=== PATIENT | male | born 1950 | race Caucasian/White ===

== ENCOUNTER 2016-04-24 10:01 | Inpatient (IN) | payer MEDICARE ==
[~2016-04-24] VITALS: Ht 188 cm; Wt 56.8 kg
[2016-04-24] VITALS (7 sets, daily range): BP systolic 105–142; BP diastolic 60–75
[~2016-04-24 10:01] MED LIST: ADVAIR 250/5028 PUFF IN; ALBUTEROL-200 PUFFS/ IH; ALBUTEROL2.5 MG/NEB IN; ALBUTEROL2.5 MG/NEB INH; AMOXICILLIN875 MG PO; AUGMENTIN1 TA2 PO; BACTRIM DS 8001 TA1 PO; BOT OP; CIPRO 500MG TA500 MG PO; COUMADIN 5MG TAB5 MG PO; CYCLOBENZAPRINE10 MG PO; DIAZEPAM5 M1 PO; DUONEB 3 MG/3 ML3 ML IH; ENDOCET 325 MG-1 TAB PO; FLEXERIL10 MG PO; GABAPENTIN 600600 MG PO; GABAPENTIN800 MG PO; HYDROCODONE 7.51 TAB PO; KEFLEX 500MG.500 MG PO; LEVAQUIN500 MG PO; MECLIZINE25 MG PO; MEDROL 4MG. DOSE4 MG PO; METRONIDAZOLE500 M1 PO; MORPHINE SULFAT30 M3 PO; MORPHINE SULFAT30 M4 PO; NEVANAC 3 ML3 ML OP; NICOTINE PATCH;14 MG TD; NICOTINE PATCH;21 MG TD; NOMEDS *; OXYCODONE 5MG TA5 MG PO; OXYCODONE HCL15 MG PO; OXYCODONE SR 2020 MG PO; OXYGEN3 IH; PERCOCET 10 MG1 EACH PO; PERCOCET 5/3251 EACH PO; PHENERGAN 12.12.5 M1 PO; PILOCARPINE HCL OP; PRED FORTE OP; PREDNISONE 20MG20 MG PO; PROAIR HFA0.09 MG/AC IH; PROVENTIL0.09 MG/A1 IH; ROXICODONE15 MG PO; SALMETEROL-F28 PUFFS IN; SPIRIVA HA1 PUFF/INH IH; SYMBICORT1 AE1 IH; SYMBICORT1 AER IH; VALIUM 5MG TABLE5 MG PO; VALIUM2 MG PO; VENTOLIN H0.09 MG/AC IH; VIGAMOX 3 ML3 ML OP; ZITHROMAX Z PA250 MG PO; ZITHROMAX Z-PA250 M1 PO
--- NOTE | 2016-04-24 10:25 | Emergency Room Report ---
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 Clinical Suspician of Infection? Mental Status: Sepsis Risk: Have you (or family members/close friends) recently traveled outside the [place]? If Yes, where/when: Have you had exposure to infectious disease within the past month? TB? Other? Specify: Source patient, RN notes reviewed Exam Limitations no limitations Comment pT sent from home due to being less responsive than usual. He has history of COPD and is on home O2 at 2 L and also on chronic pain meds. In the ED he is not verbally communicative but does shake his head yes and no to questions. Pupils are small and he is on 4L nasal O2 and has an O2 Sat of 99% on 4L in the ED. He has no focal deficit but does not answer questions except to shake his head and does not follow verbal instructions. His VS are all normal Cardiac Chest Pain Chest pain indicative of cardiac No ALLERGIES Coded Allergies: aspirin (Severe, Q-[id number]-DDLD/THROAT 03/06/16) ibuprofen (Severe, G-MAEVDV-TZJS/THROAT 03/06/16) Home Medications Active Scripts Prednisone (Prednisone 20MG) 20 MG PO BID #10 TAB Prov: 03/17/16 Reported Medications ALBUTEROL (Albuterol 0.083% Neb) 2.5 MG INH QIDP PRN SOB Albuterol (Albuterol-Hfa Inhaler) 1 PUFF IH Q4HP PRN SOB FLUTICASONE/SALMETEROL (Advair 250-50 Diskus) 1 PUFF IN BID Diazepam 5 MG PO TIDP PRN ANXIETY #90 TAB Gabapentin (Gabapentin 600MG) 300 MG PO TID HYDROCODONE/ACETAMINOPHEN ([place] 5-325 Tablet) 1 TAB PO BID Device (Oxygen Concentrator (Portable)) 1 UNIT IH CONSTANT History Medical History General CAD? No Angina: No VT: No Hypertension? Yes Hyperlipidemia? No CHF? No DVT? Yes PE? No COPD? Yes Asthma? Yes Anemia? No GERD? No Gastric ulcers? Yes GI Bleed? No Hernia? Yes Thyroid Problems? No Hypothyroidism? No CVA? No Seizures? No Diabetes? No Insulin Dependent: No Insulin Pump: No Home FSBS? No Renal Insuffiency? No End Stage Renal Disease? No UTI? No Stones? No BPH? Yes GB Disease: No Nephritic Syndrome? No Asplenia? No Hepatitis? Yes Sickle Cell Disease? No Arthritis? No Migraines? No Cataracts? Yes Glaucoma? No MRSA? No HIV? No TB? No Anxiety? Yes Depression? Yes Cancer? No More? No Immunization Hx DT/Tetanus Unknown Flu 2016-17FSN Pneumonia Received In Past Surgical Hx Previous Surgery?Y BACK SURGERY X 2 Cataract(s) HERNIA REPAIR Family History Family Hx Diabetes Yes CAD Yes Hypertension Yes Hyperlipidemia Yes Cancer Yes TB No Social History Smoking Hx Packs/day 1 1/2 - 2 Packs Alcohol Alcohol: No Review of Systems All Other Systems Reviewed and Negative Constitutional see HPI Eyes see HPI Respiratory see HPI Cardiovascular see HPI Psychiatric/Neurological see HPI Physical Exam Vital Signs Vital Signs Date Time Temp Pulse Resp B/P Pulse O2 O2 Flow FiO2 Ox Delivery Rate 04/24 1258 103 20 124/63 100 5 04/24 1211 100 20 148/80 100 2 04/24 1120 100 20 135/72 94 2 04/24 1004 98.7 106 99 142/74 99 General Appearance no apparent distress, fatigued, Shakes head to questions but does not respond to verbal stimulation in any other way Eye Exam - bilateral eye other (both pupils small but reactive) Ear, Nose, Throat normal ENT inspection Respiratory Status No: respiratory distress. Lung Sounds bilateral: rhonchi. Cardiovascular normal exam, regular rate/rhythm, no peripheral edema Neurologic no focal deficit but not yet verbally responsive Medical Decision Making LABS/Meds/Orders Pt receiving controlled substance in ED? No Results/Orders Laboratory Tests 04/24/16 1237: ABG pH 7.27 L, ABG pCO2 (Temp Corrct 101.0 H, ABG pO2 (Temp Correct 211.0 H, ABG HCO3 46.0 H, ABG Total CO2 49.0 H, ABG O2 Sat (Calculated) 99, ABG Base Excess 19.0 H, Kevin Test ACCEPTABLE, Blood Gas Comments RIGHT RADIAL 04/24/16 1200: Opiates Screen POSITIVE H, Urine Methadone Screen NEGATIVE, Barbiturates NEGATIVE, Phencyclidine Screen NEGATIVE, Amphetamines Screen NEGATIVE, Benzodiazepines Screen NEGATIVE, Cocaine Screen NEGATIVE, Marijuana (THC) Screen NEGATIVE, Urine Color YELLOW, Urine Appearance CLEAR, Urine pH 6.0, Ur Specific [place] >= 1.030, Urine Protein NEGATIVE, Urine Ketones 3+ H, Urine Blood NEGATIVE, Urine Nitrate NEGATIVE, Urine Bilirubin 1+ H, Urine Urobilinogen 1.0, Ur Leukocyte Esterase NEGATIVE, Urine RBC NONE, Urine WBC 10-20, Ur Squamous Epith Cells NONE, Urine Bacteria 2+, Hyaline Casts 3-5, Urine Glucose NEGATIVE 04/24/16 1100: Sodium 145, Potassium 4.4, Chloride 101, Carbon Dioxide 42 *H, BUN 18, Creatinine 0.7 L, Estimated Creat Clear 69, Estimated GFR (MDRD) 114, Glucose 86, Calcium 9.0, Total Bilirubin 1.0, AST 6 L, ALT 15, Alkaline Phosphatase 61, Total Protein 6.8, Albumin 3.4, Globulin 3.4 H, Albumin/Globulin Ratio 1.0 L 04/24/16 1030: Lactic Acid 0.9 04/24/16 1015: WBC 7.6, RBC 3.95 L, Hgb 12.3 L, Hct 37.8 L, MCV 95.5, RDW 13.8, Plt Count 171, MPV 13.9 H, Gran % 75.1, Gran # 5.7, Lymphocytes % 19.6, Monocytes % 4.3, Eosinophils % 0.7, Basophils % 0.4, Lymphocytes # 1.5, Monocytes # 0.3, Eosinophils # 0.1, Basophils # 0.0, PUBS MCHC 32.6, MCH 31.1 Current Medication Orders Sig/Chi Start time Last Medication Dose Route Stop Time Status Admin Albuterol/Ipratropium 3 ML ONCE ONE 04/24 1300 DC INH 04/24 1301 Methylprednisolone 125 MG ONCE ONE 04/24 1300 DC Sodium Succinate IV 04/24 1301 Naloxone HCl 2 MG ONCE ONE 04/24 1030 DC 04/24 IV 04/24 1031 1044 Sodium Chloride 10 ML PRN PRN 04/24 1030 AC 04/24 IV 04/25 1025 1045 Sodium Chloride 1,000 ML .Q1H1M 04/24 1030 DC 04/24 IV 04/24 1130 1044 Sodium Chloride 10 ML PRN PRN 04/24 1030 AC IV 04/25 1026 Sodium Chloride 1,000 ML .Q4H 04/24 1030 DC IV 04/24 1429 Sodium Chloride 10 ML PRN PRN 04/24 1030 DC IV 04/25 1026 Sodium Chloride 1,000 ML .Q1H1M 04/24 1030 DC IV 04/24 1130 Sodium Chloride 10 ML PRN PRN 04/24 1030 DC IV 04/25 1026 Sodium Chloride 1,000 ML .STK-MED ONE 04/24 1022 DC IV Naloxone HCl 0 .STK-MED ONE 04/24 1016 DC .ROUTE Orders Procedure Date/time Status DIET-NOTHING BY MOUTH 04/24 L Active RT REQUEST DUONEB 04/24 1300 Active Decision to admit 04/24 1300 Active CULTURE, URINE 04/24 1200 Active CULTURE, BLOOD 04/24 1030 Active ARTERIAL BLOOD GAS REQUEST 04/[address] HEAD REQ 04/24 1028 Complete IV SALINE LOCK 04/24 1028 Active CULTURE, BLOOD 04/24 1028 Active URINALYSIS/COMPLETE 04/24 1028 Complete LACTIC ACID 04/24 1028 Complete DRUG ABUSE SCREEN (10) 04/24 1028 Complete CBC WITH AUTO DIFF 04/24 1028 Complete CHEM 12 PROFILE 04/24 1028 Complete CM/EKG CM/EKG EKG rate (112), NSR (sinus tach), old anterior infarct pattern XRAY/CT/US XRAY/CT/US XRAY chest XR interpretation by discussed w/radiologist Xray Results COPD with hyperinflation, no acute infiltrates CT head CT interpretation by discussed w/radiologist Time results known: 1144 CT Results No acute change from 03/07/2016. Chronic Ischemic changes with Bilat. lacunar infarctions Departure Departure Time of Disposition 1300 Disposition Still a Patient Clinical Impression Primary Impression: COPD with exacerbation Secondary Impressions: Acute and chronic respiratory failure with hypercapnia Condition STABLE Referrals Sherrell LOGAN,Diana Gray Patient Instructions Chronic Obstructive Pulmonary Disease Additional Instructions Admitted to Dr. Wynne with COPD Exacerbation with hypercapnia Discharge Counseling Counseled pt/family regarding diagnosis, test results, follow up needs ED Critical Care Critical Care No If Critical Care minutes are documented, the time involved in the performance of seperately reportable procedures was not counted toward critical care time documented. I directly delivered medical care to this critically ill and/or injured patient. Timely evaluation and treatment was necessary to address the significant organ system(s) dysfunction present in this patient. at 1300
[2016-04-24 10:52] LABS: HEMOGLOBIN 12.3 g/dL (14.1-18.0); LYMPH # 1.5 K/mm3 (0.7-4.5); LYMPH % 19.6 % (10-50)
[2016-04-24] MEDS ORDERED: NORCO 325 MG-51 TAB PO (11:07)
--- NOTE | 2016-04-24 11:25 | RADIOLOGY REPORT PS360 ---
CT HEAD W/O CONTRAST HISTORY: Altered mental status, altered level consciousness, SLOW TO RESPOND ORDERING PHYSICIAN: MUKUND VIZCAINO APRN PATIENT AGE: 65 years COMPARISON: 03/07/2016 TECHNIQUE: Axial images obtained without contrast. Brain and bone windows reviewed. FINDINGS: No midline shift, mass effect, intracranial hemorrhage, hydrocephalus, or extra-axial fluid collection is evident. Old lacunar infarction involves the left caudate nucleus. There are encephalomalacia changes in the deep white matter both parietal frontal regions more extensive on the left. This is not significantly changed. The calvarium has an unremarkable appearance. No mastoid effusion. The visualized paranasal sinuses are unremarkable. IMPRESSION: 1. No change from 03/07/2016 with no acute intracranial pathology. 2. Chronic ischemic changes with bilateral lacunar infarctions.
--- NOTE | 2016-04-24 11:31 | RADIOLOGY REPORT PS360 ---
CHEST-AP VIEW ONLY HISTORY: SOA ORDERING PHYSICIAN: MUKUND VIZCAINO APRN PATIENT AGE: 65 years COMPARISON: None available FINDINGS: There is hyperinflation with attenuation of the peripheral pulmonary vessels consistent with the PDA. There is blunting of the CP angles with eventration of the diaphragm. No lobar consolidation or collapse. Normal heart size. Old granulomatous disease. Overlying support lines. IMPRESSION: COPD with hyperinflation.
[2016-04-24 12:10] LABS: URINE BLOOD NEGATIVE (NEG)
[2016-04-24 12:19] LABS: AMPHETAMINES/METAMPHETAMINES NEGATIVE ng/mL (<1000)
[2016-04-24 12:22] LABS: URINE BILIRUBIN - DIPSTICK 1+ (NEG)
[2016-04-24 12:48] LABS: ALLEN'S TEST ACCEPTABLE; OXYGEN 30
[2016-04-24 15:45] LABS: ARTERIAL PO2 81.8 MMHG (80-100); ARTERIAL TCO2 41.6 MMOL/L (23-27)
[2016-04-24 15:46] LABS: ALLEN'S TEST ACCEPTABLE; ARTERIAL ABE 14.5 MMOL/L (-2.4-+2.3); OXYGEN 30
[2016-04-25] VITALS (8 sets, daily range): BP systolic 111–141; BP diastolic 54–69
--- NOTE | 2016-04-25 08:50 | HISTORY AND PHYSICAL REPORT ---
Demographics: Admit date: 04/24/16 Chief complaint: sob PRIMARY DIAGNOSIS: COPD EXACERBATION Allergies: Coded Allergies: aspirin (Severe, Y-[id number]/THROAT 03/06/16) ibuprofen (Severe, S-[id number]-LKNK/THROAT 03/06/16) History of present illness: History of present illness: this wf who has known copd presented to ed with inc sob and change in mental status and was found on eval to have copd excerbation with resp failure - he was admitted for treatment Past medical history: Family HX Family Hx Insignificant Yes Immunization HX DT/Tetanus Unknown Flu 2015-FSN Pneumonia Received In Past TB Test in last year No General CAD? No Angina: No [place]: No Hypertension? Yes Hyperlipidemia? No CHF? No DVT? Yes PE? No COPD? Yes Asthma? Yes Anemia? No GERD? No Gastric ulcers? Yes GI Bleed? No Hernia? Yes Thyroid Problems? No Hypothyroidism? No CVA? No Seizures? No Diabetes? No Insulin Dependent: No Insulin Pump: No Home FSBS? No Renal Insuffiency? No UTI? No Stones? No BPH? Yes GB Disease: No Nephritic Syndrome? No Asplenia? No Hepatitis? Yes Sickle Cell Disease? No Arthritis? No Migraines? No Cataracts? Yes Glaucoma? No MRSA? No HIV? No TB? No Anxiety? Yes Depression? Yes Cancer? No More? No Past Surgical HX Previous Surgery?Y BACK SURGERY X 2 Cataract(s) HERNIA REPAIR Current home meds: Active Scripts Prednisone (Prednisone 20MG) 20 MG PO BID #10 TAB Prov: 03/17/16 Reported Medications ALBUTEROL (Albuterol 0.083% Neb) 2.5 MG INH QIDP PRN SOB Albuterol (Albuterol-Hfa Inhaler) 1 PUFF IH Q4HP PRN SOB FLUTICASONE/SALMETEROL (Advair 250-50 Diskus) 1 PUFF IN BID Diazepam 5 MG PO TIDP PRN ANXIETY #90 TAB Gabapentin (Gabapentin 600MG) 300 MG PO TID HYDROCODONE/ACETAMINOPHEN ([place] 5-325 Tablet) 1 TAB PO BID Device (Oxygen Concentrator (Portable)) 1 UNIT IH CONSTANT Social Hx: Smoking HX Tobacco No Packs/day 1 1/2 - 2 PACKS Are you/the child exposed to second-hand smoke: No Alcohol Alcohol: No Hx of Drug Use Drug Use? No Patien't marital status is Patient's support system is good Review of systems: Constitutional No: fever. Eyes No: drainage. Ears, Nose, Mouth, Throat No ear discharge, No epistaxis, No throat pain Respiratory cough, shortness of breath, wheezing. Cardiovascular No chest pain, No palpitations, No syncope Gastrointestinal/Abdominal No diarrhea, No vomiting Genitourinary No: dysuria, frequency, hesitancy, hematuria. Musculoskeletal No: back pain, joint pain, joint swelling, neck pain. Skin No: rash. Neurological No: headache, seizure disorder. Psychiatric No: depressed. Exam: Lab data for last 24 hours: Laboratory Tests 04/24/16 1555: Influenza Type A Ag NOT DETECTED, Influenza Type B Ag NOT DETECTED 04/24/16 1544: ABG pH 7.39, ABG pCO2 (Temp Corrct 67.6 H, ABG pO2 (Temp Correct 81.8, ABG HCO3 39.5 H, ABG Total CO2 41.6 H, ABG O2 Sat (Calculated) 95.7, ABG Base Excess 14.5 H, Kevin Test ACCEPTABLE, Tidal Volume 18/6 BIPAP, Blood Gas Comments R RADIAL 04/24/16 1237: ABG pH 7.27 L, ABG pCO2 (Temp Corrct 101.0 H, ABG pO2 (Temp Correct 211.0 H, ABG HCO3 46.0 H, ABG Total CO2 49.0 H, ABG O2 Sat (Calculated) 99, ABG Base Excess 19.0 H, Kevin Test ACCEPTABLE, Blood Gas Comments RIGHT RADIAL 04/24/16 1200: Opiates Screen POSITIVE H, Urine Methadone Screen NEGATIVE, Barbiturates NEGATIVE, Phencyclidine Screen NEGATIVE, Amphetamines Screen NEGATIVE, Benzodiazepines Screen NEGATIVE, Cocaine Screen NEGATIVE, Marijuana (THC) Screen NEGATIVE, Urine Color YELLOW, Urine Appearance CLEAR, Urine pH 6.0, Ur Specific [place] >= 1.030, Urine Protein NEGATIVE, Urine Ketones 3+ H, Urine Blood NEGATIVE, Urine Nitrate NEGATIVE, Urine Bilirubin 1+ H, Urine Urobilinogen 1.0, Ur Leukocyte Esterase NEGATIVE, Urine RBC NONE, Urine WBC 10-20, Ur Squamous Epith Cells NONE, Urine Bacteria 2+, Hyaline Casts 3-5, Urine Glucose NEGATIVE 04/24/16 1100: Sodium 145, Potassium 4.4, Chloride 101, Carbon Dioxide 42 *H, BUN 18, Creatinine 0.7 L, Estimated Creat Clear 69, Estimated GFR (MDRD) 114, Glucose 86, Calcium 9.0, Total Bilirubin 1.0, AST 6 L, ALT 15, Alkaline Phosphatase 61, Total Protein 6.8, Albumin 3.4, Globulin 3.4 H, Albumin/Globulin Ratio 1.0 L 04/24/16 1030: Lactic Acid 0.9 04/24/16 1015: WBC 7.6, RBC 3.95 L, Hgb 12.3 L, Hct 37.8 L, MCV 95.5, RDW 13.8, Plt Count 171, MPV 13.9 H, Gran % 75.1, Gran # 5.7, Lymphocytes % 19.6, Monocytes % 4.3, Eosinophils % 0.7, Basophils % 0.4, Lymphocytes # 1.5, Monocytes # 0.3, Eosinophils # 0.1, Basophils # 0.0, PUBS MCHC 32.6, MCH 31.1 Microbiology 04/24 1200 URINE CC: Urine Culture - RES 04/24 1030 BLOOD: Anaerobic Blood Culture - RECD 04/24 103 BLOOD: Aerobic Blood Culture - RECD 04/24 1030 BLOOD: Anaerobic Blood Culture - RECD 04/24 103 BLOOD: Aerobic Blood Culture - RECD Admission vital signs: 1ST Vital Signs Result Date Time Pulse Ox 99 04/24 1004 B/P 142/74 04/24 1004 Temp 98.7 04/24 1004 Pulse 106 04/24 1004 Resp 99 04/24 1004 O2 Flow Rate 2 04/24 1120 O2 Delivery OXYGEN 04/24 1428 Exam General appearance: awake Eyes: PERRLA ENT: dry mucous membranes Neck: no JVD Cardiovascular: regular rate & rhythm, murmur Respiratory: no respiratory distress, diminished breath sounds ABD: soft Genitourinary: no hematuria Extremities: moves all Musculoskeletal: equal muscle strength Skin: dry Neuro: alert, prepress specialist II-XII nml as tested Additional information: will use bpap and use iv steroids and resp rx Plan: Problem List 1. COPD (chronic obstructive pulmonary disease) Plan: will do agressive resp assistance to ventilate at 0878
--- NOTE | 2016-04-25 13:21 | PHARMACY CLINIC NOTE ---
Patient Demographics Patient Demographics Admission date: 04/24/16 Date: 04/25/16 Time: 1320 Allergies Coded Allergies: aspirin (Severe, O-MUGPTH-ODGX/THROAT 03/06/16) ibuprofen (Severe, G-BALOKZ-CEVM/THROAT 03/06/16) HEIGHT- FT: 6 IN: 2.00 K.813 VTE General Information Disclaimer The following section includes nursing documentation that has been pulled in for pharmacy review. Patient's VTE score: 2 Patient's VTE Risk: VERY LOW RISK Clinical trial participant? No VTE prophylaxis NQF [id number] VTE prophylaxis ordered? Yes Type of prophylaxis/treatment: VAISHALI at 1326
--- NOTE | 2016-04-25 13:21 | PHARMACY CLINIC NOTE ---
Patient Demographics Patient Demographics Admission date: 04/24/16 Date: 04/25/16 Time: 1320 Allergies Coded Allergies: aspirin (Severe, Z-BPKFJU-OLYX/THROAT 03/06/16) ibuprofen (Severe, N-GLBFSM-WUAR/THROAT 03/06/16) HEIGHT- FT: 6 IN: 2.00 K.813 VTE General Information Disclaimer The following section includes nursing documentation that has been pulled in for pharmacy review. Patient's VTE score: 2 Patient's VTE Risk: VERY LOW RISK Clinical trial participant? No VTE prophylaxis NQF [id number] VTE prophylaxis ordered? Yes Type of prophylaxis/treatment: VAISHALI at 1326
[2016-04-26] VITALS (7 sets, daily range): BP systolic 116–135; BP diastolic 51–69
--- NOTE | 2016-04-26 08:29 | ACUTE CARE PROGRESS NOTE (QUA) ---
Progress Notes Subjective Date 04/26/16 Time 0825 Note doing better Patient/family reports: feeling better Nursing reports: no complaints Objective Findings Last VS-Temp:98.1 B/P:116/57 Pulse:61 Resp:16 SaO2:98 OXYGEN Last weight lbs:125 oz:4 K.813 Method:Bed Scales Exam General appearance: alert, awake Eyes: PERRLA ENT: dry mucous membranes Neck: no JVD Cardiovascular: regular rate & rhythm Respiratory: rhonchi ABD: soft Genitourinary: no hematuria Extremities: moves all Musculoskeletal: equal muscle strength Skin: dry Neuro: alert, edge finisher II-XII nml as tested Reviewed: allergies, medications, vital signs, lab results, EKG personally reviewed Assessment/Plan Problem List 1. COPD (chronic obstructive pulmonary disease) Patient condition Improving Plan: order additional tests This inpt stay is expected to cross 2 MNs from start of care Yes Comments: doing better will check labs and have out of bed at 0828
--- NOTE | 2016-04-26 08:29 | ACUTE CARE PROGRESS NOTE (QUA) ---
Progress Notes Subjective Date 04/26/16 Time 0825 Note doing better Patient/family reports: feeling better Nursing reports: no complaints Objective Findings Last VS-Temp:98.1 B/P:116/57 Pulse:61 Resp:16 SaO2:98 OXYGEN Last weight lbs:125 oz:4 K.813 Method:Bed Scales Exam General appearance: alert, awake Eyes: PERRLA ENT: dry mucous membranes Neck: no JVD Cardiovascular: regular rate & rhythm Respiratory: rhonchi ABD: soft Genitourinary: no hematuria Extremities: moves all Musculoskeletal: equal muscle strength Skin: dry Neuro: alert, cobbler upper II-XII nml as tested Reviewed: allergies, medications, vital signs, lab results, EKG personally reviewed Assessment/Plan Problem List 1. COPD (chronic obstructive pulmonary disease) Patient condition Improving Plan: order additional tests This inpt stay is expected to cross 2 MNs from start of care Yes Comments: doing better will check labs and have out of bed at 0828
[2016-04-26 09:06] LABS: HEMOGLOBIN 12.1 g/dL (14.1-18.0)
[2016-04-26 09:07] LABS: LYMPH # 0.9 K/mm3 (0.7-4.5); LYMPH % 9.2 % (10-50)
[2016-04-26 10:48] LABS: NEUTROPHILS 92 % (42-76)
[2016-04-27 04:11] VITALS: BP 119/68
[2016-04-27 07:39] VITALS: BP 129/60
[2016-04-27 08:12] VITALS: BP 129/60
[2016-04-27] MEDS ORDERED: ZITHROMAX Z PA250 MG PO (08:34)
[2016-04-27] MEDS ORDERED: PREDNISONE 20MG20 MG PO (08:34)
--- NOTE | 2016-04-27 08:39 | ACUTE CARE PROGRESS NOTE (QUA) ---
Progress Notes Subjective Date 04/27/16 Time 0835 Patient/family reports: feeling better, no complaints Nursing reports: alert Objective Findings Last VS-Temp:98.2 B/P:129/60 Pulse:102 Resp:20 SaO2:97 OXYGEN Last weight lbs:125 oz:4 K.813 Method:Bed Scales Exam General appearance: normal appearance, alert, awake, no acute distress Eyes: normal exam ENT: normal exam Neck: normal inspection Cardiovascular: normal exam, regular rate & rhythm Respiratory: normal exam, on oxygen, wheezing ABD: normal exam, soft Genitourinary: normal voiding & quantity Extremities: normal exam, moves all, warm Musculoskeletal: normal exam Skin: normal exam, intact, warm Neuro: normal exam, alert, intact, oriented Reviewed: allergies, medications, vital signs, lab results, radiology report, consult note Assessment/Plan Problem List 1. COPD (chronic obstructive pulmonary disease) 2. Acute and chronic respiratory failure with hypercapnia Patient condition Stable Plan: initiate discharge plan This inpt stay is expected to cross 2 MNs from start of care Yes Comments: ROUNDED WITH TERRY Antibiotic Stewardship (2) Current Culture Results Microbiology 04/24 1200 URINE CC: Urine Culture - COMP ESCHERICHIA COLI 04/24 1030 BLOOD: Anaerobic Blood Culture - RES 04/24 1030 BLOOD: Aerobic Blood Culture - RES at 0838
--- NOTE | 2016-04-27 08:41 | DISCHARGE SUMMARY STANDARD ---
Demographics Admit date: 04/24/16 Discharge date: 04/27/16 History of present illness History of present illness this wf who has known copd presented to ed with inc sob and change in mental status and was found on eval to have copd excerbation with resp failure - he was admitted for treatment Hospital Course Hospital Course: 65 yr old male admitted for copd. pt presented to ed with confusion and sob. While in H treated for COPD, iv steroids, antibotics, breathing tx. Today pt states he feels better has been up moving in room. will dc home and see pt in 7 days in office Discharge diagnoses Problem List 1. COPD (chronic obstructive pulmonary disease) 2. Acute and chronic respiratory failure with hypercapnia Medications Medications: Discharge meds are as noted. Follow up Follow up in office in: 7 DAYS with: Irma LOGAN,João Gray Comment: rounded with irma at 0841
[2016-04-27 12:26] VITALS: BP 129/60
== END 2016-04-27 12:08 | disposition home or self-care (01) | DRG 190 ==
LOC: ER 10:01 → 2ND 13:04 → ER 13:04 → 2ND 13:09
PROVIDERS: Emergency Medicine; General Practice
DX: J44.1 Chronic obstructive pulmonary disease with (acute) exacerbation (principal); J96.22 Acute and chronic respiratory failure with hypercapnia; I10 Essential (primary) hypertension
CPT/HCPCS: J2310